=== PATIENT | female | born 2000 | race Caucasian/White ===

== ENCOUNTER 2023-10-27 09:48 | Outpatient (OUT) | payer OTHER, SELFPAY ==
[2023-10-27 10:22] LABS: Basophils Percent Auto 0.3 % (0.2-2.0); Eosinophils Absolute Auto 0.2 10^3/uL (0.0-0.7); Eosinophils Percent Auto 2.7 % (0.9-7.0); Hematocrit 37.2 % (36.0-48.0); Hemoglobin 11.7 g/dL (12.0-16.0); Immature Granulocytes Abs Auto 0.02 10^3/uL (0.00-0.03); Immature Granulocytes Pct Auto 0.2 % (0.0-0.5); Lymphocytes Absolute Auto 2.8 10^3/uL (1.2-3.8); Lymphocytes Percent Auto 31.1 % (20.5-60.0); Mean Corpuscular HGB Conc 31.5 g/dL (29.9-35.2); Mean Corpuscular Hemoglobin 25.9 pg (26.7-34.0); Mean Corpuscular Volume 82.3 fL (81.0-99.0); Monocytes Absolute Auto 0.6 10^3/uL (0.3-0.8); Monocytes Percent Auto 6.9 % (1.7-12.0); Neutrophils Absolute Auto 5.2 10^3/uL (1.4-6.5); Neutrophils Percent Auto 58.8 % (43.0-75.0); Platelet Count 687 10^3/uL (150-450); Red Blood Count 4.52 10^6/uL (4.20-5.40); Red Cell Distribution Width 14.1 % (11.0-15.0); White Blood Count 8.9 10^3/uL (4.0-11.0)
[2023-10-27 10:23] LABS: Bilirubin Urine NEGATIVE (NEGATIVE); Blood Urine NEGATIVE (NEGATIVE); Clarity Urine CLEAR (CLEAR); Color Urine LT. YELLOW (YELLOW); Glucose Urine UA NEGATIVE (NEGATIVE); Ketones Urine NEGATIVE (NEGATIVE); Leukocyte Esterase Urine SMALL (NEGATIVE); Nitrite Urine NEGATIVE (NEGATIVE); Protein Urine NEGATIVE (NEG/TRACE); Specific Gravity Urine 1.025 (1.005-1.025)
[2023-10-27 10:29] LABS: Amorphous Sediment Urine FEW; Bacteria Urine NONE SEEN #/HPF (NONE SEEN); Cast Seen? NONE SEEN #/LPF (NONE SEEN); Crystals Seen? None Seen #/HPF (None Seen); Mucus Urine SMALL (NONE SEEN); RBC Urine NONE SEEN #/HPF (0-2); Squamous Epithelial Cell Urine FEW #/LPF (NONE/RARE); WBC Urine 0-2 #/HPF (NONE SEEN)
[2023-10-27 11:26] LABS: Alanine Aminotransferase 37 U/L (14-59); Albumin Globulin Ratio 0.7; Albumin Level 3.2 g/dL (3.4-5.0); Alkaline Phosphatase 73 U/L (46-116); Aspartate Amino Transferase 16 U/L (15-37); BUN Creatinine Ratio 18.5; Bilirubin Total 0.3 mg/dL (0.2-1.0); Calcium 9.4 mg/dL (8.5-10.1); Chloride 103 mmol/L (98-107); Chol HDL Ratio 3.4; Cholesterol 160 mg/dL (<=200); Estimated GFR (African America >60 (>=60); Estimated GFR (Non-African Ame >60 (>=60); Globulin 4.8 g/dL; Glucose 94 mg/dL (74-106); HDL Cholesterol 47 mg/dL (40-60); LDL Cholesterol Calculated 102.4 mg/dL; Sodium 136 mmol/L (136-145); Thyroid Stimulating Hormone 0.656 uIU/mL (0.358-3.740); Triglycerides 53 mg/dL (<=150); VLDL CHOLESTEROL 10.6 mg/dL
[2023-10-27 11:41] LABS: Estimated Average Glucose 134 mg/dL; Glycohemoglobin A1C 6.3 % (4.5-6.2)
[2023-10-27 11:46] LABS: Free T4 1.26 ng/dL (0.76-1.46)
[2023-10-28 12:10] LABS: Insulin 22.6 uIU/mL (2.6-24.9)
== END 2023-10-27 09:49 | disposition home or self-care (01) ==
LOC: LAB 09:50
PROVIDERS: PCP Nurse Practitioner; Visit Provider Nurse Practitioner
DX: E66.01 Morbid (severe) obesity due to excess calories (principal); Z68.42 Body mass index [BMI] 45.0-49.9, adult
CPT/HCPCS: 36415; 80053; 80061; 81001; 83036; 83525; 84439; 84443; 85025

== ENCOUNTER 2023-11-07 09:38 | Outpatient (OUT) | payer OTHER, SELFPAY ==
[2023-11-07 10:17] LABS: Basophils Absolute Auto 0.1 10^3/uL (0.0-0.1); Basophils Percent Auto 0.5 % (0.2-2.0); Eosinophils Absolute Auto 0.6 10^3/uL (0.0-0.7); Eosinophils Percent Auto 5.7 % (0.9-7.0); Hematocrit 38.4 % (36.0-48.0); Hemoglobin 11.7 g/dL (12.0-16.0); Immature Granulocytes Abs Auto 0.03 10^3/uL (0.00-0.03); Immature Granulocytes Pct Auto 0.3 % (0.0-0.5); Lymphocytes Absolute Auto 3.4 10^3/uL (1.2-3.8); Lymphocytes Percent Auto 31.6 % (20.5-60.0); Mean Corpuscular HGB Conc 30.5 g/dL (29.9-35.2); Mean Corpuscular Hemoglobin 25.9 pg (26.7-34.0); Mean Corpuscular Volume 85.1 fL (81.0-99.0); Mean Platelet Volume 9.1 fL (9.5-13.5); Monocytes Absolute Auto 0.6 10^3/uL (0.3-0.8); Monocytes Percent Auto 5.8 % (1.7-12.0); Neutrophils Absolute Auto 6.1 10^3/uL (1.4-6.5); Neutrophils Percent Auto 56.1 % (43.0-75.0); Platelet Count 439 10^3/uL (150-450); Red Blood Count 4.51 10^6/uL (4.20-5.40); Red Cell Distribution Width 14.3 % (11.0-15.0); White Blood Count 10.9 10^3/uL (4.0-11.0)
[2023-11-07 10:31] LABS: Erythrocyte Sedimentation Rate 130 mm/hr (<=20)
[2023-11-07 10:36] LABS: C Reactive Protein 0.86 mg/dL (<=0.50)
[2023-11-07 11:26] LABS: Percent Iron Saturation 15.6 %
[2023-11-08 13:07] LABS: Transferrin 290 mg/dL (192-364)
== END 2023-11-07 09:39 | disposition home or self-care (01) ==
LOC: LAB 09:39
PROVIDERS: PCP Nurse Practitioner; Visit Provider Nurse Practitioner
DX: D75.839 Thrombocytosis, unspecified (principal)
CPT/HCPCS: 36415; 82728; 83540; 83550; 84466; 85025; 85652; 86140

== ENCOUNTER 2023-11-16 20:40 | Outpatient (OUT) | payer OTHER, SELFPAY ==
--- OUTSIDE RECORDS SUMMARY | 2023-11-16 20:43 | XMS_ITS | CCD ---
Author Name Unknown Address [address] [place] [address] Organization [facility] Care Team Providers Care Orientor Name Role Phone CASS CABELLO Admitting Unavailable CASS CABELLO Attending Unavailable REQUEST, DR NONE LISTED Primary Care UnavailJaydon Leggett Consulting Unavailable CASS CABELLO Consulting Unavailable Cass Cabello Unavailable Feliciano Barba Unavailable Gayle Garcia. Primary Care Provider GAYLE GARCIA Attending Unavailable PRAVEEN Cabello Primary Care Provider U navailable Gayle Garcia Attending Provider Cass Cabello Primary Care Unavailable Gayle Garcia Attending Unavailable Gayle Garcia Admitting Unavailable Allergies Allergy Classification Reported Allergen(s) Allergy Type Date of Onset Reaction(s) Facility (1 source) Penicillins Drug allergy (disorder) 5 [facility] Repository (6 sources) penicillAMINE Drug Allergy rash [facility] Other (1 source) Penicillins Propensity to adverse reactions to drug 3 Rash [facility] (1 source) Penicillins Drug allergy (disorder) 0 [facility] Repository Medications Current Medications Medication Drug Class(es) Dates Sig (Normalized) Sig (Original) acetaminophen 325 mg / oxyCODONE hydrochloride 5 mg oral tablet (1 source) Opioid Agonist Start: 03-02-2022 take 1 tablet by mouth every four to six hours Oxycodone-Acetamino phen (Percocet) 5-325 mg tablet Active 1 TAB PO EVERY 4-6 HOURS 12 3 March 02, 2022 clarithromycin 500 mg oral tablet (1 source) Macrolide Antimicrobial Start: 10-28-2022 take 1 tablet by mouth every twelve hours Clarithromycin 500 MG 1 tablet Orally every 12 hrs for 10 day(s) Oct, Active etonogestrel 68 mg drug implant (6 sources) Progestin Nexplanon 68 MG as directed Subcutaneous Active 24 hr venlafaxine 37.5 mg extended release oral capsule (4 sources) Serotonin and Norepinephrine Reuptake Inhibitor Start: 03-29-2022 take 1 capsule by mouth every twenty-four hours Effexor XR 37.5 MG 1 capsule with food Orally Once a day for 30 day(s) Mar, Active Start: 03-29-2022 take 1 capsule by mo uth every twenty-four hours Effexor XR 75 MG 1 capsule with food Orally Once a day for 30 day(s) Mar, Not-Taking Completed/Discontinued Medications Medication Drug Class(es) Dates Sig (Normalized) Sig (Original) benzonatate 100 mg oral capsule (2 sources) Non-narcotic Antitussive Start: 10-12-2023 End: 10-19-2023 benzonatate (TESSALON) capsule 100 mg cefTRIAXone (6 sources) Cephalosporin Antibacterial Start: 09-07-2019 Rocephin 500 mg Aug, 500 mg cephalexin 500 mg oral capsule (6 sources) Cephalosporin Antibacterial Start: 09-07-2019 take 1 capsule by mouth every eight hours Cephalexin 500 MG 1 capsule Orally three times a day for 7 days Aug, Not-Taking dicyclomine hydrochloride 20 mg oral tablet (6 sources) Anticholinergic Start: 01-28-2022 take 1 tablet by mouth every eight hours Dicyclomine HCl 20 MG 1 tablet Orally Three times a day for 15 day(s) Jan, Not-Taking docusate sodium 100 mg oral capsule (1 source) Start: 02-12-2020 End: 03-02-2022 take 1 capsule by mouth once daily Docusate Sodium (Colace) 100 mg capsule Discontinued 100 MG PO Daily February 11, 2020 11:00pm March 02, 2022 6:31am ferrous sulfate 325 mg oral tablet (1 source) Start: 02-12-2020 End: 03-02-2022 take 325 mg by mouth twice daily Ferrous Sulfate Discontinued 325 MG PO Twice daily 60 February 11, 2020 11:00pm March 02, 2022 6:31am guaiFENesin 20 mg/ml oral solution (1 source) Start: 10-12-2023 End: 10-12-2023 guaiFENesin (ROBITUSSIN) 100 MG/5ML liquid 200 mg ibuprofen 600 mg oral tablet (1 source) Nonsteroidal Anti-inflammatory Drug Start: 02-12-2020 End: 03-02-2022 Ibuprofen Discontinued 600 MG PO Every 6 hours 30 February 11, 2020 11:00pm March 02, 2022 6:31am do not exceed 4 doses in a 24 hour period predniSONE 20 mg oral tablet (1 source) Start: 10-12-2023 End: 10-12-2023 predniSONE (DELTASONE) tablet 60 mg Start: 10-12-2023 End: 10-12-2023 predniSONE (DELTASONE) table t 60 mg (6 sources) Not-Tutu ing traZODone hydrochloride 50 mg oral tablet (1 source) Serotonin Reuptake Inhibitor Start: 05-03-2022 traZODone HCl 50 MG 0.5 tablet at bedtime as needed to start may increase to 1 in the next few weeks Orally Once a day for 30 day(s) Apr, Not-Taking Problems Active Problems Problem Classification Problem Date Documented Date Episodic/Chronic Abdominal pain (5 sources) Right upper quadrant pain; Translations: [RIGHT UPPER QUADRANT PAIN] Onset: 01-28-2022 Resolved: 01-28-2022 Episodic Anxiety disorders (5 sources) Generalized anxiety disorder; Translations: [Generalized anxiety disorder] Onset: 03-29-2022 Resolved: 03-29-2022 Chronic Biliary tract disease (7 sources) Other cholelithiasis without obstruction; Translations: [Gallstone] Onset: 02-10-2022 03-02-2022 Episodic Immunizations and screening for infectious disease (1 source) Contact with and (suspected) exposure to other viral communicable diseases Episodic Other lower respiratory disease (1 source) Cough; Translations: [Subacute cough] 10-12-2023 Episodic Other upper respiratory infections (8 sources) Streptococcal sore throat; Translations: [Strep throat] Episodic Residual codes; unclassified (3 sources) Sleep apnea; Translations: [Sleep apnea, unspecified] Chronic Residual codes; unclassified (1 source) Sleep apnea, unspecified Onset: 04-14-2022 Resolved: 04-14-2022 Chronic Residual codes; unclassified (4 sources) Insomnia; Translations: [Insomnia, unspecified] Episodic Past or Other Problems Problem Classification Problem Date Documented Da te Episodic/Chronic Other lower respiratory disease (1 source) Snoring Onset: 01-28-2022 Resolved: 01-28-2022 Episodic Residual codes; unclassified (1 source) Insomnia, unspecified Onset: 03-29-2022 Resolved: 03-29-2022 Episodic Results Test Name Value Interpretation Reference Range Facility [facility] 11-07-2023 L Specimen: [id number] Received: 11/07/23 Status: SOUT Req Num: [id number] Spec Type: Impression Subm Dr: GÉNESIS Reddy Tissues: PATHPER Procedures: PATHREVIEW Age/ Patient Sex Location Account Attending Physician Dayana Benton 23/F LABELL [id number] GÉNESIS Reddy SPEC NUM: [id number] RECD: 11/07/23 STATUS: WIN RE NUM: [id number] ZBIGNIEW: 11/07/23- SUBM DR: GÉNESIS Reddy ENTERED: 11/07/[address]: Cuco Louie SPEC TYPE: Impression DEPT: ASHLEY Hearn ENTERED BY: [id number] RECV BY: [id number] ORDERED: PATHREVIEW ORDERED: PATHREVIEW Pathologist Review Abnormal CBC for peripheral blood smear review: -Mild anemia of normocytic type, including minor insignificant degree of anisocytosis with at least occasional rare ovalocytes or elliptocytes, occasional microcytes and hypochromic cells, occasional macrocytes and the rare suggested and the related polychromatophils, otherwise without obvious target cells or schistocytes observed -No obvious abnormalities in the other hematological indicis, except borderline leukocytosis, and borderline thrombocytosis with apparent mildly low MPV -No obvious morphological abnormality of the leukocyte population, except rare bands, and the occasional minor cytoplasmic vacuoles of the rare segments -The platelet morphology are unremarkable, except predominantly of the small platelet types Comment: -The mild chronic anemia in this case in a given young adult female patient of the reproductive age is most likely of the mild iron deficiency type, due to the chronic iron deficiency from the PARTS REPRESENTATIVE related blood loss, and/or the related nutritional demands during , requiring continuous clinical and laboratory correlations, including the status of the serum iron profile of note CPT: 00174 Specimen: [id number] Received: 11/07/23 Status: WIN Rosa Num: [id number] Spec Type: Impression Subm Dr: Gayle Garcia NP-C Tissues: PATHPER Procedures: PATHREVIEW Patient: Dayana Benton [id number] (Continued) Specimen: [id number] Received: 11/07/23 (Continued) Signed (signatur e on file) Marie Mares MD 11/07/23 1906 Specimen: [id number] Received: 11/07/23 Status: WIN Rosa Num: [id number] Spec Type: Impression Subm Dr: Gayle Garcia NP-C Tissues: PATHPER Procedures: PATHREVIEW Patient: Dayana Benton [id number] (Continued) Specimen: [id number] Received: 11/07/23 (Continued) CBC No results available. Specimen: [id number] Received: 11/07/230 Status: WIN Rosa Num: [id number] Spec Type: Impression Subm Dr: Gayle Garcia, RADIATION TECHNICIAN-C Tissues: PATHPER Procedures: PATHREVIEW Patient: Dayana Benton Alis [id number] (Continued) Signed (signatur e on file) Marie Mares MD 11/07/231905 [facility] Urinalysis with Microscopico n 10-12-2023 Bilirubin Ql (U) Negative NEGATIVE [facility] Clarity (U) Clear Clear [facility] Color (U) Yellow Yellow [facility] Epithelial cells LM.HPF (Urine sed) [#/Area] 2 TO 5 [facility] Glucose Test strip (U) [Mass/Vol] Negative NEGATIVE mg/dL [facility] Hemoglobin Auto test strip Ql (U) 1+ Abnormal NEGATIVE [facility] Interpretation and review of laboratory results Abnormal [facility] Ketones (U) [Mass/Vol] 2+ Abnormal NEGATIVE mg/dL [facility] Leukocyte esterase Test strip Ql (U) Negative NEGATIVE [facility] Mucus Ql (Urine sed) 2+ Abnormal None [facility] Nitrite Ql (U) Negative NEGATIVE [facility] pH (U) 6.0 [pH] 5.0 - 9.0 [facility] Protein (U) [Mass/Vol] TRACE Abnormal NEGATIVE mg/dL [facility] RBC LM.HPF (Urine sed) [#/Area] 2 TO 5 [facility] Specific gravity (U) [Rel density] High 1.010 - 1.020 [facility] Urobilinogen Qn (U) Normal 0.0 - 1. 0 EU/dL [facility] WBC LM.HPF (Urine sed) [#/Area] None [facility] COVID/FLU/RSV RT-PCRon 10-28 SARS-CoV-2 (COVID-19) RNA RADHA+probe Ql (Unsp spec) [facility] Other COVID/FLU/RSV RT-PCR Negative [facility] Other Quick Strepon 10-28-2022 S. pyogenes Org specific cx Ql (Throat) Positive [facility] Other Quick Strep [facility] Other US SINGLE QUAD RT UPPERon US SINGLE QUAD RT UPPER EXAM: Sound of the right upper quadrant HISTORY: . Right upper quadrant pain . COMPARISON: None. TECHNIQUE: Grayscale and color imaging was performed FINDINGS: The pancreas appears normal. The liver is normal in size. No focal masses or biliary dilatation is noted. Color-flow is noted in the portal and hepatic veins. Common bile duct is normal measuring 3 mm. Scanning of the gallbladder demonstrates multiple echogenic small foci within the gallbladder with shadowing consistent with multiple gallstones. There is a small amount of sludge within the gallbladder. No gallbladder wall thickening is noted. Patient had no pain upon scanning over the gallbladder. Right kidney measures 11.4 x 6 x 5.3 cm. Color-flow is noted. No solid renal cortical masses or hydronephrosis is noted. No fluid is noted in the right upper quadrant. IMPRESSION: 1. Multiple small gallstones within the gallbladder along with a small amount of sludge. No gallbladder wall thickening. Patient had no pain upon scanning over the gallbladder. 2. The remainder of the right upper quadrant was unremarkable. Electronically authenticated by: JAYDON AGUIRRE Date: 2022-02-05 08:49 Normal [facility] Vital Signs Date Time Vital Sign Value Performing Clinician Smith vazquez 10-12-2023 21:36-0500 Body height 165.1 cm Tim Sheppard MD Work Phone: [facility] 10-12-2023 21:36-0500 Body mass index (BMI) [Ratio] 40.77 kg/m2 Tim Sheppard MD Work Phone: [facility] 10-12-2023 21:36-0500 Body temperature 99.7 [degF] Tim Sheppard MD Work Phone: [facility] 10-12-2023 21:36-0500 Body weight 111.13 kg Tim Sheppard MD Work Phone: [facility] 10-12-2023 21:36-0500 Diastolic blood pressure 91 mm[Hg] Tim Sheppard MD Work Phone: [facility] 10-12-2023 21:36-0500 Heart rate 110 /min Tim Sheppard MD Work Phone: [facility] 10-12-2023 21:36-0500 Respiratory rate 18 /min Tim Sheppard MD Work Phone: [facility] 10-12-2023 21:36-0500 SaO2% (BldA) [Mass fraction] 98 % Tim Sheppard MD Work Phone: [facility] 10-12-2023 21:36-0500 Systolic blood pressure 139 mm[Hg] Tim Sheppard MD Work Phone: [facility] 10-28-2022 16:00-0500 Body height 162.56 cm Cass Cabello Other [facility] Other 10-28-2022 16:00-0500 Body mass index (BMI) [Ratio] 42.91 kg/m2 Cass Cabello Other [facility] Other 10-28-2022 16:00-0500 Body temperature 98.2 [degF] Cass Cabello Other [facility] Other 10-28-2022 16:00-0500 Body weight 113.4 kg Cass Cabello Other [facility] Other 10-28-2022 16:00-0500 Respiratory rate 18 /min Cass Cabello Other [facility] Other 10-28-2022 16:00-0500 SaO2% (BldA) [Mass fraction] 98 % Cass Cabello Other [facility] Other 04-14-2022 14:15-0400 Body height 162.56 cm Feliciano Barba Other [facility] Other 04-14-2022 14:15-0400 Body mass index (BMI) [Ratio] 43.94 kg/m2 Feliciano Barba Other [facility] Other 04-14-2022 14:15-0400 Body temperature 97.7 [degF] Antonioer Freda Other [facility] Other 04-14-2022 14:15-0400 Body weight 116.12 kg Antonioer Freda Other [facility] Other 04-14-2022 14:15-0400 Diastolic blood pressure 79 mm[Hg] Antonioer Freda Other [facility] Other 04-14-2022 14:15-0400 SaO2% (BldA) [Mass fraction] 96 % Andrzejamy Pinodano Other [facility] Other 04-14-2022 14:15-0400 Systolic blood pressure 119 mm[Hg] Feliciano Freda Other [facility] Other 03-29-2022 17:00-0400 Body height 162.56 cm Cass Gibsonault Other [facility] Other 03-29-2022 17:00-0400 Body mass index (BMI) [Ratio] 43.77 kg/m2 Cass Gibsonault Other [facility] Other 03-29-2022 17:00-0400 Body temperature 98.9 [degF] Cass Curly Other [facility] Other 03-29-2022 17:00-0400 Body weight 115.67 kg Cass Gibsonault Other [facility] Other 03-29-2022 17:00-0400 Diastolic blood pressure 94 mm[Hg] Cass Curly Other [facility] Other 03-29-2022 17:00-0400 Respiratory rate 20 /min Cass Gibsonault Other [facility] Other 03-29-2022 17:00-0400 SaO2% (BldA) [Mass fraction] 98 % Cass Curly Other [facility] Other 03-29-2022 17:00-0400 Systolic blood pressure 125 mm[Hg] Cass Gibsonault Other [facility] Other 01-28-2022 12:00-0400 Body height 162.56 cm Cass Gibsonault Other [facility] Other 01-28-2022 12:00-0400 Body mass index (BMI) [Ratio] 43.25 kg/m2 Cass Gibsonault Other [facility] Other 01-28-2022 12:00-0400 Body temperature 98.7 [degF] Cass Gibsonault Other [facility] Other 01-28-2022 12:00-0400 Body weight 114.31 kg Cass Gibsonault Other [facility] Other 01-28-2022 12:00-0400 Diastolic blood pressure 70 mm[Hg] Cass Curly Other [facility] Other 01-28-2022 12:00-0400 Respiratory rate 18 /min Cass Gibsonault Other [facility] Other 01-28-2022 12:00-0400 SaO2% (BldA) [Mass fraction] 97 % Cass Curly Other [facility] Other 01-28-2022 12:00-0400 Systolic blood pressure 112 mm[Hg] Cass Curly Other [facility] Other Encounters Encounter Date Encounter Type Care Provider Facility Start: 11-07-2023 End: 11-07-2023 ambulatory Cass Cabello Facility:[facility] Start: 11-07-2023 End: 11-07-2023 ambulatory MANAGER APPLICATION DEVELOPMENT-C Cass Cabello [facility] Work Phone: Start: 11-07-2023 End: 11-07-2023 Departed Referred MANAGER APPLICATION DEVELOPMENT-C Cass Cabello [facility] Start: 10-27-2023 End: 10-27-2023 ambulatory GAYLE GARCIA Not Available Start: 10-12-2023 End: 10-12-2023 Emergency department patient visit Tim Sheppard MD Work Phone: [facility] Comment on above: Subacute cough (Prim jasmin Dx) Start: 10-28-2022 End: 10-28-2022 ambulatory Cass Cabello Other [facility] Other Start: 10-28-2022 Office outpatient visit 25 minutes Cass Cabello [facility] Start: 04-14-2022 End: 04-14-2022 ambulatory Feliciano Barba Other [facility] Other Start: 04-14-2022 Office outpatient ne w 30 minutes Feliciano Barba [facility] Start: 04-14-2022 Telephone encounter Feliciano mercado [facility] Start: 03-29-2022 End: 03-29-2022 ambulatory Cass Cabello Other [facility] Other Start: 03-29-2022 Office outpatient visit 15 minutes Cass Cabello [facility] Start: 02-11-2022 End: 02-11-2022 ambulatory Cass Cabello Other [facility] Other Start: 02-11-2022 Telephone encounter Cass brady [facility] Start: 02-05-2022 End: 02-06-2022 ambulatory CASS CABELLO Facility:[facility] Start: 01-28-2022 End: 01-28-2022 ambulatory Cass Cabello Other [facility] Other Start: 01-28-2022 Office outpatient visit 15 minutes Cass Cabello [facility] Procedures Date Procedure Procedure Detail Performing Clinician Start: 10-12-2023 Urnls dip stick/tabl et reagent auto microscopy Tim Sheppard MD Work Phone: Plan of Treatment Date Care Activity Detail Author Start: 05-17-2023 Influenza vaccination Flu vaccine (# 1) [facility] Start: 2017 DTaP/Tdap/Td vaccine (1 - Tdap) DTaP/Tdap/Td vaccine (1 - Tdap) [facility] Start: 1998 COVID-19 Vaccine (#1) COVID-19 Vacci ne (#1) [facility] End: 10-12-2023 Culture, Urine [facility] Comment on above: One Time for 1 Occur rences starting 10/12/2023 until 10/12/2023 Payers Date Payer Category Payer Self-pay [id number] 2022 Private Health Insurance [id number] 1998 Unknown [id number] 1998 Unknown [id number] 1959 Unknown [id number] Medicaid Medicaid [id number] Private Health Insurance [employer] [id number] Unknown [id number] Social History Date Type Detail Facility Unknown if ever smoked [facility] Other Sex Assigned At [facility] Other Start: 03-02-2022 End: 10-12-2023 Tobacco smoking status NHIS Never smoked tobacco [facility] Start: 10-12-2023 Tobacco use and exposure Smokeless tobacco non-user [facility] Start: 10-12-2023 Alcohol intake Lifetime non-d henry (finding) [facility] Start: 1998 Sex Assigned At Not on file [facility] Start: 1998 Sex Assigned At Female F [facility] Clinical Notes 01-28-2022 to 10-12-2023 Discharge InstructionsAttachments Note Date & Type Note Facility 10-12-2023 Hospital Discharg e instructions Tim Sheppadr MD - 10/12/2023 10:15 PM EST Drink plenty of water or Gatorade type solution. Avoid drinking alcohol or drinks that have caffeine in it. Take your medication as indicated and prescribed. For pain use acetaminophen (Tylenol) or ibuprofen (Motrin / Advil), unless prescribed medications that have acetaminophen or ibuprofen (or similar medications) in it. You can take over the counter acetaminophen tablets (1 - 2 tablets of the 500-mg strength every 6 hours) or ibuprofen tablets (2 tablets every 4 hours). Take over the counter medications for any nasal congestion / sore throat type symptoms. Mix 1 teaspoon of maalox and 1 teaspoon of liquid benadryl, gargle for 1 minute then swallow. You can also use Cepacol lozenge or Chloraseptic throat spray to help soothe your throat. PLEASE RETURN TO THE EMERGENCY DEPARTMENT IMMEDIATELY for worsening symptoms or if you develop any concerning symptoms such as: high fever not relieved by acetaminophen (Tylenol) and/or ibuprofen (Motrin / Advil), chills, shortness of breath, chest pain, feeling of your heart fluttering or racing, persistent nausea and/or vomiting, vomiting up blood, blood in your stool, loss of consciousness, numbness, weakness or tingling in the arms or legs or change in color of the extremities, changes in mental status, persistent headache, blurry vision loss of bladder / bowel control, unable to follow up with your physician, or other any other care or concern. The following attachments cannot be sent through Care Everywhere.Cough (Georgian)documented in this encounter [facility] 10-28-2022 Evaluation note Encounter Date Diagnosis Assessment Notes Oct, Contact with and (suspected) exposure to other viral communicable diseases (ICD-10 - Z20.828) Oct, Strep pharyngitis (ICD-10 - J02.0) Symptoms presented in office today indicate Strep Throat. Take medications as directed. Saltwater gargles may help with pain and disrupts bacteria and viral infections. Continue tylenol/ibu for general discomfort. Encourage fluids. Symptoms should improve within the next 4-7 days. Oct, Sore throat (ICD-10 - J02.9) [facility] Other 06-29-2022 Evaluation note* Encounter Date Diagnosis Assessment Notes Treatment Notes Treatment Clinical Notes Mar, Sleep apnea (ICD-10 - G47.30) [facility] Other 06-13-2022 Evaluation note* Encounter Date Diagnosis Assessment Notes Treatment Notes Treatment Clinical Notes Mar, ANDREW (generalized anxiety disorder) (ICD-10 - F41.1) Today during the appointment we discussed depression and emotions. We talked about treatment options that include both counseling and medication interventions. When we first start treatment, it is common to have to be seen more frequently as we figure out the best treatment regimen that fits you as an individual. We will be able to space out appointments more once we find what works for you. If at any time you feel like your symptoms have increased in severity or you want to hurt yourself, please never hesitate to contact us and we will get you in to be seen. Also always know the [facility] Emergency Number is 24 hours a day available, even on holidays there is someone you can reach out to. Also we will check other labs yearly to screen for other health issues. Please remember we are a team and your opinion is very important in all of your healthcare decisions Mar, Insomnia, unspecified type (ICD-10 - G47.00) Keep sleep lab appointment; will follow up in 4 weeks and see where she is [facility] Other 05-01-2022 History general Narrative - Reported* Type Description Date Medical History anxiety Surgical History Lap cholecystectomy Surgical History gallbladder removal 02/2022 Hospitalization History No Hospitalization histo ry information [facility] Other 04-14-2022 Evaluation note* Encounter Date Diagnosis Assessment Notes Treatment Notes Treatment Clinical Notes Jan, RUQ abdominal pain (ICD-10 - R10.11) We will get US resutls first then we can detrmine the next steps. Jan, Snoring (ICD-10 - R06.83) Referral sent to sleep lab to help further help with symptom relief. [facility] Other Evaluation noteNo InformationNort [employer] Other evaluation note* Diagnosis Subacute cough- Primary Cough documented in this encounter [facility] noteNo assessment information available [facility] Work Phone: History general Narrative - Reported* Type Description Date Hospitalization History No know Hospitalization history [facility] Other [facility] Narrative - Reported* Type Description Date Surgical History Lap cholecystectomy Hospitalization History No Hospitalization histo ry information [facility] Other [facility] general Narrative - Reported* Type Description Date Medical History anxiety Surgical History Lap cholecystectomy Hospitalization History No Hospitalization histo ry information [facility] Other Summary Purpose Family History No Family History Records Found Relationship Condition Age at Onset Recorded Date/T reina Not Specified No pertinent family history Unknown Advance Directives No Advanced Directives Records Found Advance Directive Response Recorded Date/ Time Advance Directives No November 4:07pm Reason for Referral Reason patient is snoring a nd waking up from it Diagnosis 1 Snoring (R06.83) Referral Organization [facility] Referring Provider First Name Cass Referring Provider Last Name Curly Referring Provider Specialty Nurse Pract itioner Referred Organization [facility] Referred Provider Jaydon Chance Referred Address [address],[place], [place],[address] Referred Provider Specialty Sleep Medici ne Referral Priority Routine General Notes Elsy Espinoza 022 02:16:26 PM >Received today and waiting for office notes to be locked before sending referral Additional Source Comments INFORMATION SOURCE (unrecogn ized section and content) DATE CREATED AUTHOR 02/13/2022 [facility] DATE CREATED AUTHOR AUTHOR'S ORGANIZ ATION 10/28/2023 [facility] EPIC DATE CREATED AUTHOR AUTHOR'S ORGANIZ ATION 11/08/2023 [facility] REASON FOR VISIT (unrecogniz ed section and content) Reason Comments Dysuria Blood in urine, pain with urination Cough Patient reports coug h and congestion for a week Ordered Prescriptions (unrec ognized section and content) Prescription Sig Dispensed Refills Start Date End Da te benzonatate (TESSALON PERLES) 100 MG capsule Take 1 capsule by mouth 3 times daily as needed for Cough 30 capsule 0 10/12/2023 10/19/2023 Scheduled Active and Recently Administ ered Medications (unrecognized section and content) Medication Order 10/10/2023 10/11/2023 10/12/2023 benzonatate (TESSALON) capsule 100 mg (COMPLETED) 100 mg, Oral, ONCE, 1 dose, On Tue10/12/23 at 2145 2147 (Given - Provid er: Jesusita Martinez RN) guaiFENesin (ROBITUSSIN) 100 MG/5ML liquid 200 mg (COMPLETED) 200 mg, Oral, ONCE, 1 dose, On Tue10/12/23 at 2145 2146 (Given - Provid er: Jesusita Martinez RN) predniSONE (DELTASONE) tablet 60 mg (COMPLETED) 60 mg, Oral, ONCE, 1 dose, On Tue10/12/23 at 2230 2226 (Given - Provid er: Jesusita Martinez RN) Care Teams (unrecognized sec tion and content) Orientor Relationship Specialty Start Date End Date Gayle Garcia [id number] [place] [address] PCP - General Nurse Practitioner 10/12/23 Team Status: Active Member Role Status Dates PRAVEEN Suggs Primary Care Provider Active Team Status: Inactive Member Role Status Dates PRAVEEN Suggs Primary Care Provider Active Start: November 07, 2023 End: November 07, 2023 Gayle Garcia Attending Provider Active Start: November 07, 2023 End: November 07, 2023 Goals (unrecognized section and content) Goals may be documented in a n alternate section FOR RECORDS PERTAINING TO PATIENTS WHO ARE OR HAVE BEEN ENROLLED IN A CHEMICAL DEPENDENCY/SUBSTANCEABUSE PROGRAM, SOME INFORMATION MAY BE OMITTED. This clinical summary was aggregated from multiple sources. Caution should be exercised in using it in the provision of clinical care. This summary normalizes information from multiple sources, and as a consequence, information in this document may materially change the coding, format and clinical context of patient data. In addition, data may be omitted in some cases. CLINICAL DECISIONS SHOULD BE BASED ON THE PRIMARY CLINICAL RECORDS. [facility] [employer] [facility]. provides no warranty or guarantee of the accuracy or completeness of information in this document.
== END 2023-11-16 20:41 | disposition home or self-care (01) ==
LOC: SLEEP 20:40
PROVIDERS: PCP Nurse Practitioner; Visit Provider Nurse Practitioner
DX: G47.33 Obstructive sleep apnea (adult) (pediatric) (principal)
CPT/HCPCS: 95810

== ENCOUNTER 2023-12-14 19:43 | Outpatient (OUT) | payer OTHER, SELFPAY ==
--- OUTSIDE RECORDS SUMMARY | 2023-12-14 19:48 | XMS_ITS | CCD ---
Author Name Unknown Address [address] [place] [address] [address] [place] [id number] Organization [facility] Care Team Providers Care Auto Body Man Name Role Phone CASS CABELLO Admitting Unavailable CASS CABELLO Attending Unavailable REQUEST, NONE LISTED Primary Care UnavailJaydon Leggett Consulting Unavailable CASS CABELLO Consulting Unavailable Cass Cabello Unavailable Feliciano Barba Unavailable Gayle Garcia. Primary Care Provider PRAVEEN Cabello Primary Care Provider U navailable Gayle Garcia Attending Provider [phone] Cass Cabello Primary Care Unavailable Gayle Garcia Attending Unavailable Gayle Garcia Admitting Unavailable Andres Ramey MD Primary Care Provider Radha CERTIFIED PHYSICAL THERAPIST ASSISTANT, Gayle Unavailable GAYLE GARCIA Attending Unavailable GAYLE GARCIA Attending Unavailable Allergies Allergy Classification Reported Allergen(s) Allergy Type Date of Onset Reaction(s) Facility (1 source) Penicillins Drug allergy (disorder) 5 [facility] Repository (6 sources) penicillAMINE Drug Allergy rash [employer] Other (1 source) Penicillins Propensity to adverse reactions to drug [address] [facility] (1 source) penicillAMINE Drug Allergy 3 [facility] Repository (1 source) Penicillins Drug allergy (disorder) 0 [facility] Repository (3 sources) Penicillins Drug Allergy 3 [facility] Medications Current Medications Medication Drug Class(es) Dates [...] Oct, Active etonogestrel 68 mg drug implant (9 sources) Progestin etonogestrel-elu tin g (Nexplanon) 68 mg contraceptive implant 1 each by Implant route 1 (one) time. 0 Active Nexplanon 68 MG as directed Subcutaneous Active 24 hr venlafaxine 37.5 mg extended release oral capsule (4 sources) Serotonin and Norepinephrine Reuptake Inhibitor Start: 03-29-2022 take 1 capsule by mouth every twenty-four hours Effexor XR 37.5 MG 1 capsule with food Orally Once a day for 30 day(s) Mar, Active Start: 03-29-2022 take 1 capsule by [facility] every twenty-four hours Effexor XR 75 MG [...] Sulfate Discontinued 325 MG PO Twice daily February 11, 2020 11:00pm March 02, 2022 6:31am guaiFENesin 20 mg/ml oral solution (1 source) Start: 10-12-2023 End: 10-12-2023 guaiFENesin (ROBITUSSIN) 100 MG/5ML liquid 200 mg ibuprofen 600 mg oral tablet (1 source) Nonsteroidal Anti-inflammatory Drug Start: 02-12-2020 End: 03-02-2022 Ibuprofen Discontinued 600 MG PO Every 6 hours February 11, 2020 11:00pm March 02, 2022 [...] Onset: 01-28-2022 Resolved: 01-28-2022 Episodic Anxiety disorders (8 sources) Generalized anxiety disorder; Translations: [Generalized anxiety disorder] Onset: 03-29-2022 Resolved: 03-29-2022 Chronic Diabetes mellitus without complication (4 sources) Prediabetes; Translations: [Prediabetes] Onset: 11-28-2023 11-28-2023 Episodic Headache; including migraine (3 sources) Migraine; Translations: [Migraine, unspecified, not intractable, without status migrainosus] Onset: 11-28-2023 11-28-2023 Chronic Immunizations and screening for infectious disease (1 source) Contact with and (suspected) exposure to other viral communicable diseases Episodic Neoplasms of unspecified nature or uncertain behavior (5 sources) Thrombocytosis; Translations: [Thrombocythemia] Onset: 10-28-2023 10-28-2023 Episodic Other hematologic conditions (5 sources) ESR raised; Translations: [Elevated erythrocyte sedimentation rate] Onset: 11-08-2023 11-08-2023 Episodic Other lower respiratory disease (1 source) Cough; Translations: [Subacute cough] 10-12-2023 Episodic Other nutritional; endocrine; and metabolic disorders (5 sources) Body mass index 40+ - severely obese; Translations: [Body mass index (BMI) 40.0-44.9, adult] Onset: 10-27-2023 10-27-2023 Chronic Other upper respiratory infections (8 sources) Streptococcal sore throat; Translations: [Strep throat] Episodic Residual codes; unclassified (3 sources) Sleep apnea; Translations: [Sleep apnea, unspecified] Chronic Residual codes; unclassified (1 source) Sleep apnea, unspecified Onset: 04-14-2022 Resolved: 04-14-2022 Chronic Residual codes; unclassified (5 sources) Obstructive sleep apnea syndrome; Translations: [Obstructive sleep apnea (adult) (pediatric)] Onset: 10-27-2023 11-28-2023 Chronic Residual codes; unclassified (4 sources) Insomnia; Translations: [Insomnia, unspecified] Episodic Past or Other Problems Problem Classification Problem Date Documented Date Episodic/Chronic Acute bronchitis (3 sources) Acute infective bronchitis; Translations: [Acute bronchitis due to other specified organisms] Onset: 10-27-2023 Resolved: 11-28-2023 11-28-2023 Episodic Biliary tract disease (10 sources) Other cholelithiasis without obstruction; Translations: [Gallstone] Onset: 02-10-2022 Resolved: 11-28-2023 03-02-2022 Episodic Other lower respiratory disease (1 source) Snoring Onset: 01-28-2022 Resolved: 01-28-2022 Episodic Residual codes; unclassified (1 source) Insomnia, unspecified Onset: 03-29-2022 Resolved: 03-29-2022 Episodic Viral infection (3 sources) Varicella; Translations: [Varicella without complication] Onset: 11-28-2023 Resolved: 11-28-2023 11-28-2023 Episodic Results Test Name Value Interpretation Reference Range Facility [facility] 11-07-2023 L Specimen: [id number] Received: 11/07/23 Status: SOUT Req Num: [id number] Spec Type: Impression Subm Dr: GÉNESIS Reddy Tissues: PATHPER Procedures: PATHREVIEW Age/ Patient Sex Location Account Attending Physician Dayana Benton 23/ LABELL [id number] GÉNESIS Reddy SPEC NUM: [id number] RECD: 11/07/23 STATUS: SOUT REQ NUM: [id number] ZBIGNIEW: 11/07/23- SUBM DR: GÉNESIS Reddy ENTERED: 11/07/[address]: Cuco Louie SPEC TYPE: Impression DEPT: ASHLEY Hearn ENTERED BY: [id number] RECV BY: [id number] ORDERED: PATHREVIEW ORDERED: PATHREVIEW Pathologist Review Abnormal [...] to the chronic iron deficiency from the BODY LINER related blood loss, and/or the related nutritional demands during , requiring continuous clinical and laboratory correlations, including the status of the serum iron profile of note CPT: 93390 Specimen: [id number] Received: 11/07/23 Status: PATTITammi Moe Num: [id number] Spec Type: Impression Subm Dr: Gayle Garcia, CERTIFIED PHYSICAL THERAPIST ASSISTANT-C Tissues: PATHPER Procedures: PATHREVIEW Patient: Dayana Benton [id number] (Continued) Specimen: [id number] Received: 11/07/23 (Continued) Signed (signatur e on file) Marie Mares MD 11/07/23 1906 Specimen: [id number] Received: 11/07/23 Status: WIN Rosa Num: [id number] Spec Type: Impression Edilma Dr: GÉNESIS Reddy Tissues: PATHPER Procedures: PATHREVIEW Patient: Dayana Benton [id number] (Continued) Specimen: [id number] Received: 11/07/23 (Continued) CBC No results available. Specimen: [id number] Received: 11/07/23 Status: WIN Rosa Num: [id number] Spec Type: Impression Subm Dr: Gayle Garcia, CERTIFIED PHYSICAL THERAPIST ASSISTANT-C Tissues: PATHPER Procedures: PATHREVIEW Patient: Dayana Benton [id number] (Continued) Signed (signatur e on file) Marie Mares MD 11/07/231905 [facility] Urinalysis with Microscopico n 10-12-2023 Bilirubin Ql (U) Negative NEGATIVE [facility] Clarity (U) Clear Clear [facility] Color (U) Yellow Yellow [facility] [...] pH (U) 6.0 [pH] 5.0 - 9.0 [facility] Protein (U) [Mass/Vol] TRACE Abnormal NEGATIVE mg/dL [facility] RBC LM.HPF (Urine sed) [#/Area] 2 TO 5 [facility] Specific gravity (U) [Rel density] High 1.010 - 1.020 [facility] Urobilinogen Qn (U) Normal 0.0 - 1. 0 EU/dL [facility] WBC LM.HPF (Urine sed) [#/Area] None [facility] COVID/FLU/RSV RT-PCRon 10-28 SARS-CoV-2 (COVID-19) RNA RADHA+probe Ql (Unsp spec) [facility] [employer] Other COVID/FLU/RSV RT-PCR Negative [facility] [employer] Other Quick Strepon 10-28-2022 S. pyogenes Org specific cx Ql (Throat) Positive [facility] [employer] Other Quick Strep [facility] [employer] Other US SINGLE QUAD RT UPPERon US [...] by: JAYDON AGUIRRE Date: 2022-02-05 08:49 Normal [facility] Vital Signs Date Time Vital Sign Value Performing Clinician Smith vazquez 11-28-2023 09:04-0500 Body height 166.4 cm Gayle Radha CERTIFIED PHYSICAL THERAPIST ASSISTANT Work Phone: [facility] 11-28-2023 09:04-0500 Body mass index (BMI) [Ratio] 42.9 kg/m2 Gayle Radha CERTIFIED PHYSICAL THERAPIST ASSISTANT Work Phone: [facility] 11-28-2023 09:04-0500 Body temperature 97.5 [degF] Gayle Radha CERTIFIED PHYSICAL THERAPIST ASSISTANT Work Phone: [facility] 11-28-2023 09:04-0500 Body weight 118.75 kg Gayle Radha CERTIFIED PHYSICAL THERAPIST ASSISTANT Work Phone: [facility] 11-28-2023 09:04-0500 Diastolic blood pressure 82 mm[Hg] Gayle Radha CERTIFIED PHYSICAL THERAPIST ASSISTANT Work Phone: [facility] 11-28-2023 09:04-0500 Heart rate 70 /min Gayle Radha CERTIFIED PHYSICAL THERAPIST ASSISTANT Work Phone: [facility] 11-28-2023 09:04-0500 Respiratory rate 20 /min Gayle Radha CERTIFIED PHYSICAL THERAPIST ASSISTANT Work Phone: [facility] 11-28-2023 09:04-0500 SaO2% (BldA) [Mass fraction] 97 % Gayle Garcia CERTIFIED PHYSICAL THERAPIST ASSISTANT Work Phone: [facility] 11-28-2023 09:04-0500 Systolic blood pressure 112 mm[Hg] Gayle Radha CERTIFIED PHYSICAL THERAPIST ASSISTANT Work Phone: [facility] 10-12-2023 21:36-0500 Body height 165.1 cm Tim Sheppard MD Work Phone: [facility] 10-12-2023 21:36-0500 Body mass index (BMI) [Ratio] 40.77 kg/m2 Tim Sheppard MD Work Phone: [facility] 12-27-2023 21:36-0500 Body temperature 99.7 [degF] Tim Sheppard MD Work Phone: [facility] [employer] 10-12-2023 21:36-0500 Body weight 111.13 kg Tim Sheppard MD Work Phone: [facility] [employer] 10-12-2023 21:36-0500 Diastolic blood pressure 91 mm[Hg] Tim Sheppard MD Work Phone: [facility] [employer] 10-12-2023 21:36-0500 Heart rate 110 /min Tim Sheppard MD Work Phone: [facility] [employer] 10-12-2023 21:36-0500 Respiratory rate 18 /min iTm Sheppard MD Work Phone: [facility] [employer] 10-12-2023 21:36-0500 SaO2% (BldA) [Mass fraction] 98 % Tim Sheppard MD Work Phone: [facility] [employer] 10-12-2023 21:36-0500 Systolic blood pressure 139 mm[Hg] Tim Sheppard MD Work Phone: [facility] [employer] 10-28-2022 16:00-0500 Body height 162.56 cm Cass Curly Other [employer] Other 10-28-2022 16:00-0500 Body mass index (BMI) [Ratio] 42.91 kg/m2 Cass Curly Other [employer] Other 10-28-2022 16:00-0500 Body temperature 98.2 [degF] Cass Curly Other [employer] Other 10-28-2022 16:00-0500 Body weight 113.4 kg Cass Curly Other [employer] Other 01-12-2023 16:00-0500 Respiratory rate 18 /min Cass Cabello Other [employer] Other 10-28-2022 16:00-0500 SaO2% (BldA) [Mass fraction] 98 % Cass Cabello Other [employer] Other 04-14-2022 14:15-0400 Body height 162.56 cm Antonioer Freda Other [employer] Other 04-14-2022 14:15-0400 Body mass index (BMI) [Ratio] 43.94 kg/m2 Christjorgeer Freda Other [employer] Other 04-14-2022 14:15-0400 Body temperature 97.7 [degF] Antonioer Freda Other [employer] Other 04-14-2022 14:15-0400 Body weight 116.12 kg Christopher Freda Other [employer] Other 04-14-2022 14:15-0400 Diastolic blood pressure 79 mm[Hg] Christopher Freda Other [employer] Other 04-14-2022 14:15-0400 SaO2% (BldA) [Mass fraction] 96 % Christopher Freda Other [employer] Other 04-14-2022 14:15-0400 Systolic blood pressure 119 mm[Hg] Christopher Freda Other [employer] Other 03-29-2022 17:00-0400 Body height 162.56 cm Cass Cabello Other [employer] Other 03-29-2022 17:00-0400 Body mass index (BMI) [Ratio] 43.77 kg/m2 Cass Cabello Other [employer] Other 03-29-2022 17:00-0400 Body temperature 98.9 [degF] Cass Gibsonault Other [employer] Other 03-29-2022 17:00-0400 Body weight 115.67 kg Cass Cabello Other [employer] Other 03-29-2022 17:00-0400 Diastolic blood pressure 94 mm[Hg] Cass Cabello Other [employer] Other 03-29-2022 17:00-0400 Respiratory rate 20 /min Cass Cabello Other [employer] Other 03-29-2022 17:00-0400 SaO2% (BldA) [Mass fraction] 98 % Cass Cabello Other [employer] Other 03-29-2022 17:00-0400 Systolic blood pressure 125 mm[Hg] Cass Gibsonault Other [employer] Other 01-28-2022 12:00-0400 Body height 162.56 cm Cass Gibsonault Other [employer] Other 01-28-2022 12:00-0400 Body mass index (BMI) [Ratio] 43.25 kg/m2 Cass Gibsonault Other [employer] Other 01-28-2022 12:00-0400 Body temperature 98.7 [degF] Cass Cabello Other [employer] Other 01-28-2022 12:00-0400 Body weight 114.31 kg Cass Cabello Other [employer] Other 01-28-2022 12:00-0400 Diastolic blood pressure 70 mm[Hg] Cass Cabello Other [employer] Other 01-28-2022 12:00-0400 Respiratory rate 18 /min Cass Cabello Other [employer] Other 01-28-2022 12:00-0400 SaO2% (BldA) [Mass fraction] 97 % Cass Cabello Other [employer] Other 01-28-2022 12:00-0400 Systolic blood pressure 112 mm[Hg] Cass Cabello Other [employer] Other Encounters Encounter Date Encounter Type Care Provider Facility Start: 11-28-2023 Bamboo flowsheet Gayle Garcia CERTIFIED PHYSICAL THERAPIST ASSISTANT Work Phone: [facility] Start: 11-28-2023 Bamboo flowsheet Gayle Garcia CERTIFIED PHYSICAL THERAPIST ASSISTANT Work Phone: [facility] Start: 11-28-2023 End: 11-28-2023 ambulatory GAYLE GARCIA Not Available Start: 11-28-2023 End: 11-28-2023 Office outpatient visit 25 minutes Gayle Garcia CERTIFIED PHYSICAL THERAPIST ASSISTANT Work Phone: [facility] Comment on above: CINDY (obstructive sle ep apnea) (Primary Dx); BMI 40.0-44.9, adult (CMS/HCC); Thrombocythemia; Elevated sed rate; Pre-diabetes Start: 11-07-2023 End: 11-07-2023 ambulatory Cass Curly Facility:[facility] Start: 11-07-2023 End: 11-07-2023 ambulatory [employer] Cass Cabello [facility] Work Phone: Start: 11-07-2023 End: 11-07-2023 Departed Referred MELTER SUPER[employer]-C Cass Cabello [facility] Start: 10-27-2023 End: 10-27-2023 ambulatory GAYLE GARCIA Not Available Start: 10-12-2023 End: 10-12-2023 Emergency department patient visit Tim Sheppard MD Work Phone: [facility] ED Comment on above: Subacute cough (Prim jasmin Dx) Start: 10-28-2022 End: 10-28-2022 ambulatory Cass Cabello Other [employer] Other Start: 10-28-2022 Office outpatient visit 25 minutes Cass Cabello [facility] Start: 04-14-2022 End: 04-14-2022 ambulatory Feliciano Barba Other [employer] Other Start: 04-14-2022 Office outpatient ne w 30 minutes Feliciano Barba [facility] Start: 04-14-2022 Telephone encounter Feliciano mercado [facility] Start: 03-29-2022 End: 03-29-2022 ambulatory Cass Cabello Other [employer] Other Start: 03-29-2022 Office outpatient visit 15 minutes Cass Cabello [facility] [place] Start: 02-11-2022 End: 02-11-2022 ambulatory Cass Cabello Other [employer] Other Start: 02-11-2022 Telephone encounter Cass brady [facility] Start: 02-05-2022 End: 02-06-2022 ambulatory CASS CABELLO Facility:[facility] Start: 01-28-2022 End: 01-28-2022 ambulatory Cass Cabello Other [facility] [employer] Other Start: 01-28-2022 Office outpatient visit 15 minutes Cass Cabello [facility] [place] Procedures Date Procedure Procedure Detail Performing Clinician Start: 10-12-2023 Urnls dip stick/tabl et reagent auto microscopy Tim Sheppard MD Work Phone: Plan of Treatment Date Care Activity Detail Author Start: 01-09-2024 End: 01-09-2024 Patient encounter procedure 01/09/2024 8:40 AM EDT Office Visit [facility] [address] [place] [address] Gayle Garcia, CERTIFIED PHYSICAL THERAPIST ASSISTANT [address] [place] [id number] [facility] Start: 11-28-2023 End: 11-28-2023 Patient encounter procedure 11/28/2023 9:00 AM EST Office Visit [facility] [address] [place] [address] Gayle Garcia, CERTIFIED PHYSICAL THERAPIST ASSISTANT [address] [place] [id number] CINDY (obstructive sleep apnea) (Primary Dx) [facility] Comment on above: CINDY (obstructive sle ep apnea) (Primary Dx) Start: 05-17-2023 Influenza vaccination Flu vaccine (# 1) [facility] Start: 2017 DTaP/Tdap/Td vaccine (1 - Tdap) DTaP/Tdap/Td vaccine (1 - Tdap) [facility] Start: 1998 COVID-19 Vaccine (#1) COVID-19 Vacci ne (#1) [facility] End: 10-12-2023 Culture, Urine [facility] Comment on above: One Time for 1 Occur rences starting 10/12/2023 until 10/12/2023 Immunizations Immunization Date Immunization Notes Care Provider Rosalie hernandez 11-10-2020 influenza, injectabl e, quadrivalent, preservative free Gayle Aichholz CERTIFIED PHYSICAL THERAPIST ASSISTANT Work Phone: [facility] 09-18-2019 influenza, injectabl e, quadrivalent, contains preservative Gyale Aichholz CERTIFIED PHYSICAL THERAPIST ASSISTANT Work Phone: [facility] 2010 meningococcal polysaccharide (groups A, C, Y and W-135) diphtheria toxoid conjugate vaccine (MCV4P) Gayle Aichholz CERTIFIED PHYSICAL THERAPIST ASSISTANT Work Phone: [facility] 2010 tetanus toxoid, redu nimesh diphtheria toxoid, and acellular pertussis vaccine, adsorbed Gayle Aichholz CERTIFIED PHYSICAL THERAPIST ASSISTANT Work Phone: [facility] 07-03-2003 diphtheria, tetanus toxoids and acellular pertussis vaccine, unspecified formulation Gayle Aichholz CERTIFIED PHYSICAL THERAPIST ASSISTANT Work Phone: [facility] 07-03-2003 measles, mumps and r ubella virus vaccine Gayle Aichholz CERTIFIED PHYSICAL THERAPIST ASSISTANT Work Phone: [facility] 07-03-2003 poliovirus vaccine, inactivated Gayle Aichholz CERTIFIED PHYSICAL THERAPIST ASSISTANT Work Phone: [facility] 05-15-2002 pneumococcal conjuga te vaccine, 7 valent Gayle Aichholz CERTIFIED PHYSICAL THERAPIST ASSISTANT Work Phone: [facility] 12-18-1999 diphtheria, tetanus toxoids and acellular pertussis vaccine, unspecified formulation Gayle Aichholz CERTIFIED PHYSICAL THERAPIST ASSISTANT Work Phone: [facility] 12-18-1999 haemophilus influenz ae type b vaccine, conjugate unspecified formulation Gayle Aichholz CERTIFIED PHYSICAL THERAPIST ASSISTANT Work Phone: [facility] 12-18-1999 measles, mumps and r ubella virus vaccine Gayle Aichholz CERTIFIED PHYSICAL THERAPIST ASSISTANT Work Phone: [facility] 02-23-1999 diphtheria, tetanus toxoids and acellular pertussis vaccine, unspecified formulation Gayle Aichholz CERTIFIED PHYSICAL THERAPIST ASSISTANT Work Phone: [facility] 02-23-1999 haemophilus influenz ae type b vaccine, conjugate unspecified formulation Gayle Aichholz CERTIFIED PHYSICAL THERAPIST ASSISTANT Work Phone: [facility] 02-23-1999 hepatitis B vaccine, pediatric or pediatric/adolescent dosage Gayle Aichholz CERTIFIED PHYSICAL THERAPIST ASSISTANT Work Phone: [facility] 02-23-1999 poliovirus vaccine, inactivated Gayle Aichholz CERTIFIED PHYSICAL THERAPIST ASSISTANT Work Phone: [facility] 1998 diphtheria, tetanus toxoids and acellular pertussis vaccine, unspecified formulation Gayle Aichholz CERTIFIED PHYSICAL THERAPIST ASSISTANT Work Phone: [facility] 1998 haemophilus influenz ae type b vaccine, conjugate unspecified formulation Gayle Aichholz CERTIFIED PHYSICAL THERAPIST ASSISTANT Work Phone: [facility] 1998 poliovirus vaccine, inactivated Gayle Aichholz CERTIFIED PHYSICAL THERAPIST ASSISTANT Work Phone: [facility] 1998 diphtheria, tetanus toxoids and acellular pertussis vaccine, unspecified formulation Gayle Aichholz CERTIFIED PHYSICAL THERAPIST ASSISTANT Work Phone: [facility] 1998 haemophilus influenz ae type b vaccine, conjugate unspecified formulation Gayle Aichholz CERTIFIED PHYSICAL THERAPIST ASSISTANT Work Phone: [facility] 1998 hepatitis B vaccine, pediatric or pediatric/adolescent dosage Gayle Aichholz CERTIFIED PHYSICAL THERAPIST ASSISTANT Work Phone: [facility] 1998 poliovirus vaccine, inactivated Gayle Aichholz CERTIFIED PHYSICAL THERAPIST ASSISTANT Work Phone: [facility] 1998 hepatitis B vaccine, pediatric or pediatric/adolescent dosage Gayle Aichholz CERTIFIED PHYSICAL THERAPIST ASSISTANT Work Phone: [facility] Payers Date Payer Category Payer Self-pay [id number] 2022 Medicaid [employer] [place] [id number] 2022-Present [address] [place] [address] [id number] 2022 Private Health Insurance [id number] 1998 Unknown [id number] 1998 Unknown [id number] 1998 Unknown [id number] 1959 Unknown [id number] Medicaid Medicaid [id number] Private Health Insurance [facility] Insurance [employer]. [id number] Unknown [id number] Social History Date Type Detail Facility Unknown if ever smoked [employer] Other Start: 10-27-2023 End: 11-28-2023 Sex Assigned At [employer] Other Start: 10-12-2023 End: 10-27-2023 Tobacco smoking status IDIS Never smoked tobacco [facility] Start: 10-12-2023 End: 10-27-2023 Tobacco use and exposure Smokeless tobacco non-user [facility] Start: 10-12-2023 End: 11-28-2023 Alcohol intake Lifetime non-drinker (finding) [facility] Start: 1998 Sex Assigned At Not on file B ON [employer] Start: 1998 Sex Assigned At Female F [facility] Start: 10-27-2023 End: 02-12-2024 History of Social function [facility] Start: 05-18-2023 Education 13 [facility] Start: 05-18-2023 Alcohol Comment Caffeine intak e: 1-2 cups per day pop [facility] Clinical Notes 01-28-2022 to 11-28-2023 Gayle Garcia NP - 11/28/2023 10:02 AM Joslyn Garcia, JEANNE - 11/28/2023 10:01 AM Joslyn Garcia NP - 11/28/2023 10:01 AM Joslyn Garcia NP - 11/28/2023 9:24 AM ESTDischarge Instructions Note Date & Type Note Facility 11-28-2023 History of Presen t illness Narrative Associated Problem(s): Pre-diabetes Working on diet and weight loss , less sugary foods Associated Problem(s): Elevated sed rate Need autoimmune results Associated Problem(s): Thrombocythemia Had further labs needs to find those, no autoimmune testing results Associated Problem(s): CINDY (obstructive sleep apnea) Reviewed sleep study, needs titration study Discussed co morbidity and mortality associated with this Fu in 6 weeks Dayana Benton is a 23 y.o. female presents with chief complaint of No chief complaint on file. HPI: Here for a recheck. Since her last visit she has had abnormal labs as well as had sleep study Here to review those things SUBJECTIVE: MEDICATIONS: Current Outpatient Medications Medication Instructions etonogestrel-eluting (Nexplanon) 68 mg contraceptive implant 1 each, Implant, Once ALLERGIES: Allergies Allergen Reactions Penicillins Other Reaction(s): Unknown REVIEW OF SYMPTOMS: Review of Systems Constitutional: Negative for appetite change, chills and fever. HENT: Negative for congestion, ear pain and sore throat. Eyes: Negative for pain, discharge, redness and visual disturbance. Respiratory: Negative for cough, shortness of breath and wheezing. Cardiovascular: Negative for chest pain, palpitations and leg swelling. Gastrointestinal: Negative for abdominal pain, blood in stool, constipation, diarrhea, nausea and vomiting. Genitourinary: Negative for difficulty urinating, dysuria and frequency. Musculoskeletal: Negative for arthralgias, back pain, joint swelling and myalgias. Skin: Negative for rash and wound. Neurological: Negative for dizziness, tremors, seizures, syncope and headaches. Migraine BOOTH Psychiatric/Behavioral: Negative for behavioral problems, self-injury and suicidal ideas. The patient is not nervous/anxious. Hematological: Does not bruise/bleed easily. Endocrine: Negative for polydipsia, polyphagia and polyuria. Allergic/Immunologic: Negative for environmental allergies and food allergies. PAST MEDICAL HISTORY Past Medical History: Diagnosis Date Anxiety and depression ([facility]) 11/28/2023 Chicken pox Cholelithiasis Headache Migraine headache ([facility]) 11/28/2023 Past Surgical History: Procedure Laterality Date CHOLECYSTECTOMY 03/02/2022 OTHER SURGICAL HISTORY 04/24/2020 Nexplanon insertion OTHER SURGICAL HISTORY 06/29/2023 Nexplanon removal and reinsertion VAGINAL DELIVERY 02/23/2016 VAGINAL DELIVERY 02/11/2020 family history includes Cancer in her maternal grandfather and paternal grandfather. OBJECTIVE: Visit Vitals BP 112/82 (BP Location: Left arm, Patient Position: Sitting, BP Cuff Size: Large adult) Pulse 70 Temp 97.5 F (Temporal) Resp 20 Ht 5' 5.5 Wt 261 lb 12.8 oz SpO2 97% BMI 42.90 kg/m Smoking Status Never BSA 2.35 m Physical Exam Vitals reviewed. Constitutional: General: She is not in acute distress. Appearance: Normal appearance. HENT: Head: Normocephalic and atraumatic. Right Ear: External ear normal. Left Ear: External ear normal. Nose: Nose normal. Mouth/Throat: Mouth: Mucous membranes are moist. Eyes: Extraocular Movements: Extraocular movements intact. Conjunctiva/sclera: Conjunctivae normal. Cardiovascular: Rate and Rhythm: Normal rate and regular rhythm. Pulses: Normal pulses. Heart sounds: Normal heart sounds. Pulmonary: Effort: Pulmonary effort is normal. Breath sounds: Normal breath sounds. Musculoskeletal: General: Normal range of motion. Cervical back: Normal range of motion and neck supple. Skin: General: Skin is warm and dry. Capillary Refill: Capillary refill takes 2 to 3 seconds. Findings: No rash. Neurological: General: No focal deficit present. Mental Status: She is alert and oriented to person, place, and time. Psychiatric: Mood and Affect: Mood normal. Behavior: Behavior normal. Thought Content: Thought content normal. Judgment: Judgment normal. ASSESSMENT AND PLAN: No follow-ups on file. Problem List Items Addressed This Visit BMI 40.0-44.9, adult ([facility]) CINDY (obstructive sleep apnea) - Primary Reviewed sleep study, needs titration study Discussed co morbidity and mortality associated with this Fu in 6 weeks Thrombocythemia Had further labs needs to find those, no autoimmune testing results Elevated sed rate Need autoimmune results Pre-diabetes Working on diet and weight loss , less sugary foods documented in this encounter [facility] 10-12-2023 Hospital Discharg e Tim Hill MD - 10/12/2023 10:15 PM EST Drink [...] attachments cannot be sent through Care Everywhere.Cough (Vietnamese)documented in this encounter [facility] 10-28-2022 Evaluation note Encounter Date Diagnosis [...] days. Oct, Sore throat (ICD-10 - J02.9) [employer] Other 06-29-2022 Evaluation note* Encounter Date Diagnosis Assessment Notes Treatment Notes Treatment Clinical Notes Mar, Sleep apnea (ICD-10 - G47.30) [employer] Other 06-13-2022 Evaluation note* Encounter Date Diagnosis [...] to be seen. Also always know the [facility] Emergency Number is 24 hours [...] 4 weeks and see where she is [employer] Other 05-01-2022 History general Narrative - Reported* Type Description Date Medical History anxiety Surgical History Lap cholecystectomy Surgical History gallbladder removal 02/2022 Hospitalization History No Hospitalization [employer] [facility] information [employer] Other 04-14-2022 Evaluation note* Encounter Date Diagnosis Assessment Notes Treatment Notes Treatment Clinical Notes Jan, RUQ abdominal pain (ICD-10 - R10.11) We will get US resutls first then we can detrmine the next steps. Jan, Snoring (ICD-10 - R06.83) Referral sent to sleep lab to help further help with symptom relief. [employer] Other Evaluation noteNo InformationNort [employer] Other [employer] note* Diagnosis Subacute cough- Primary Cough documented in this encounter [facility] noteNo assessment information available [facility] Work Phone: Evalucvpye note* Diagnosis CINDY (obstructive sleep apnea)- Primary Obstructive sleep apnea (adult) (pediatric) BMI 40.0-44.9, adult ([facility]) Thrombocythemia Essential thrombocythemia Elevated sed rate Elevated sedimentation rate Pre-diabetes Other abnormal glucose documented in this [facility] N[facility] - Reported* Type Description Date Hospitalization History No know Hospitalization history [employer] Other History general Narrative - Reported* Type Description Date Surgical History Lap cholecystectomy Hospitalization History No Hospitalization [employer] Other History general Narrative - Reported* Type Description Date Medical History anxiety Surgical History Lap cholecystectomy Hospitalization History No Hospitalization histo ry [employer] Other Summary Purpose Family History No Family [...] Snoring (R06.83) Referral Organization [facility] Referring Provider First Name Cass Referring Provider Last Name Curly Referring Provider Specialty Nurse Pract itioner Referred Organization [facility] Referred Provider Jaydon Chance Referred Address [address],[place], [place],[address] Referred Provider Specialty Sleep Medici ne Referral Priority Routine General Notes Elsy Espinoza M 022 02:16:26 PM >Received today and waiting for office notes to be locked before sending referral Additional Source Comments INFORMATION SOURCE (unrecogn ized section and content) DATE CREATED AUTHOR [facility]13/2022 [facility] DATE CREATED AUTHOR AUTHOR'S ORGANIZ ATION 11/25/2023 [facility] DATE CREATED AUTHOR AUTHOR'S ORGANIZ ATION 11/29/2023 [facility] EPIC REASON FOR VISIT (unrecogniz ed section and [...] Oral, ONCE, 1 dose, On Tue10/12/23 at 21447 (Given - Provid er: Jesusita Martinez RN) [...] Care Teams (unrecognized sec tion and content) Auto Body Man Relationship Specialty Start Date End Date Gayle Garcia [address] [place] [address] PCP - General Nurse Practitioner 10/12/23 Team Status: Active Member Role Status Dates PRAVEEN Suggs Primary Care Provider Active Team Status: Inactive Member Role Status Dates PRAVEEN Suggs Primary Care Provider Active Start: November 07, 2023 End: November 07, 2023 Gayle Garcia Attending Provider Active Start: November 07, 2023 End: November 07, 2023 Auto Body Man Relationship Specialty Start Date End Date Andres Ramey MD PCP - General Family Medicine 05/11/23 Gayle Garcia NP [address] [place] [address] Referring Physician Nurse Practitioner 05/11/23 Auto Body Man Relationship Specialty Start Date End Date Andres Ramey MD PCP - General Family Medicine 05/11/23 Gayle Garcia NP [address] [place] [id number] Referring Physician Nurse Practitioner 05/11/23 Goals (unrecognized section and content) Goals may [...] BE BASED ON THE PRIMARY CLINICAL RECORDS. [facility] provides no warranty or guarantee of the accuracy or completeness of information in this document.
== END 2023-12-14 19:44 | disposition home or self-care (01) ==
LOC: SLEEP 19:44
PROVIDERS: PCP Nurse Practitioner; Visit Provider Nurse Practitioner
DX: G47.33 Obstructive sleep apnea (adult) (pediatric) (principal)
CPT/HCPCS: 95811